=== PATIENT | female | born 1995 | race African-American/Black ===

== ENCOUNTER 2018-07-29 14:01 | Emergency (ER) | payer SELFPAY ==
[~2018-07-29] VITALS: Ht 160 cm; Wt 95.9 kg
[2018-07-29] MEDS ORDERED: KETOROLAC 60MG/2ML VIAL IM ONE (16:45)
[2018-07-29 17:18] LABS: BASOPHILS % 1.4 % (0.0-2.0); EOSINOPHILS % 5.1 % (0.0-5.0); HEMATOCRIT. 35.3 % (36.0-48.0); HEMOGLOBIN. 11.7 g/dL (12.0-16.0); LYMPHOCYTES % 37.8 % (20.0-50.0); MEAN CORPUSCULAR HEMOGLOBIN 28.5 pg (28.0-32.0); MEAN PLATELET VOLUME 7.2 fl (7.4-10.4); MONOCYTES % 5.5 % (2.0-8.0); NEUTROPHILS % 50.2 % (40.0-76.0); PLATELET 325 x1000/uL (130-400); RED BLOOD CELL COUNT 4.11 mill/uL (4.2-5.4); RED CELL DISTRIBUTION WIDTH 14.2 % (11.6-14.6)
[2018-07-29 17:20] LABS: CHLORIDE 111 mEq/L (98-107)
[2018-07-29 18:55] VITALS: BP 106/67
== END 2018-07-29 18:55 | disposition home or self-care (01) ==
LOC: ER 14:01
DX: R07.89 Other chest pain (principal); F12.10 Cannabis abuse, uncomplicated; Z98.890 Other specified postprocedural states
CPT/HCPCS: 36415; 71045; 80053; 81025; 84484; 85025; 93005; 96372; 99284; J1885